=== PATIENT | female | born 1950 | race Caucasian/White ===

== ENCOUNTER → 2018-10-09 | Outpatient (CLI) | payer MEDICARE ==
[2018-10-09 13:46] LABS: HGB 10.3 gm/dL (11.4-16.0); Hypochromasia Slight; MCH 26.6 pg (25.0-35.0); MCHC 31.3 g/dL (31.0-37.0); Platelet Count 370 k/uL (150-450); RBC 3.89 m/uL (3.80-5.40); RDW 15.3 % (11.5-15.5)
[2018-10-09 19:17] LABS: Albumin 4.1 g/dL (3.80-4.90); Albumin/Globulin Ratio 2.05 (1.60-3.17); Anion Gap 9.3 mmol/L (4.00-12.00); Calcium 9.2 mg/dL (8.7-10.3); Carbon Dioxide 26.7 mmol/L (21.6-31.8); Potassium 4.9 mmol/L (3.5-5.5); Total Bilirubin 0.3 mg/dL (0.2-1.2); Total Protein 6.1 g/dL (6.2-8.2)
[2018-10-09 19:24] LABS: T4, Free (Free Thyroxine) 1.1 ng/dL (0.80-1.80)
[2018-10-09 21:31] LABS: Hemoglobin A1C 9.2 % (4.0-6.0)
== END | disposition home or self-care (01) ==
LOC: LABWHC1 12:38
PROVIDERS: ATTEND Obstetrics & Gynecology
DX: N93.8 Other specified abnormal uterine and vaginal bleeding (principal); N95.0 Postmenopausal bleeding; E03.9 Hypothyroidism, unspecified; Z13.1 Encounter for screening for diabetes mellitus
CPT/HCPCS: 36415; 80053; 83036; 84439; 84443; 84479; 85027

== ENCOUNTER → 2018-10-15 | Outpatient (CLI) | payer MEDICARE ==
[2018-10-15 09:37] LABS: Blood Urea Nitrogen 9 mg/dL (7-17)
--- NOTE | 2018-10-15 12:24 | CT ---
EXAMINATION TYPE: CT abdomen pelvis w con DATE OF EXAM: 10/15/2018 COMPARISON: NONE HISTORY: 68 year-old female cervical Mass TECHNIQUE: Contiguous axial scanning of the abdomen and pelvis following administration of 100 ml Iso liz 300 IV contrast. Delayed images through the kidneys and coronal/sagittal reconstructions perform ed. CT DLP: 1835.9 mGycm Automated exposure control for dose reduction was used. FINDINGS: Heart normal size without pericardial effusion. Lung bases clear without pleural effusion. Lower right periaortic and retrocrural lymphadenopathy measuring up to 8 mm. No focal liver lesion or biliary ductal dilatation. Portal venous system is patent. Cholecystectomy c lips are present. Right adrenal gland, left kidney, spleen, and pancreas show no gross abnormality. Small parapelvic cysts in the right kidney as well as a 1.5 cm cyst in the lower pole. Large supraumbilical ventral abdominal wall hernia. The hernia sac measures 17.4 cm wide with the abd ominal wall defect measuring 5.5 cm wide. Superiorly, the hernia contains nonobstructed distal stomac h and proximal duodenum. Inferiorly, the hernia contains nonobstructed transverse colon. Left adrenal nodule measures 2.0 cm. Numerous small retroperitoneal lymph nodes are demonstrated. Some of these are mildly enlarged in the intervertebral region measuring up to 1 cm, refer to axial image 35 and 33. Normal appendix. No pericolonic inflammatory change. Uterus is anteverted. There is a very large lobulated mass exophytic from the right uterine fundus me asuring up to 14.2 cm wide by 12.4 cm AP by 13.6 cm cranial caudal. Some internal areas of lower dens ity, likely necrosis or hemorrhage are present. Small amount of adjacent free fluid along the left po sterior aspect of the mass. Within the uterus, there appears to be diffuse thickening of the central portion, possible abnormal e ndometrial thickening measuring up to 3 cm and a large mass within the cervix measuring 6.5 x 6.2 cm. The ovaries are questionably visualized, axial image 51 and axial image 68. No pelvic lymphadenopath y seen. Bones: Degenerative changes at the hips. Some poorly defined sclerosis involving the L2 vertebral bod y may be on a degenerative basis. Early osseous metastatic disease difficult to exclude at this time. IMPRESSION: 1. LARGE MASS CENTERED IN THE CERVIX MEASURING 6.5 X 6.2 CM IS CONFIRMED. THE ENDOMETRIUM MAY ALSO BE ABNORMALLY THICKENED MEASURING UP TO 3 CM. UNDERLYING ENDOMETRIAL/CERVICAL CANCER SHOULD BE CONSIDER ED. 2. LARGE, LOBULATED, EXOPHYTIC MASS FROM THE RIGHT UTERINE FUNDUS MEASURES UP TO 14.2 CM. THERE IS SO ME ADJACENT MINIMAL FREE FLUID ALONG THE LEFT LATERAL MARGIN AND POSTERIORLY. A LARGE SUBSEROSAL PEDU NCULATED FIBROID IS POSSIBLE. FIBROID DEGENERATION OR MALIGNANT TRANSFORMATION IS NOT EXCLUDED AT THI S TIME. 3. SCATTERED NUMEROUS NONENLARGED AND SOME BORDERLINE TO MILDLY ENLARGED RETROPERITONEAL LYMPH NODES MEASURING UP TO 1 CM AND SOME LOWER RIGHT PARA-AORTIC AND RIGHT RETROCRURAL LYMPH NODES WELL MEASU RING UP TO 8 MM. EARLY METASTATIC DISEASE NOT EXCLUDED AT THIS TIME. 4. NONSPECIFIC 2 MM LEFT ADRENAL NODULE. AGAIN, METASTATIC DISEASE REMAINS TO BE EXCLUDED. 5. POORLY DEFINED SCLEROSIS INVOLVING THE L2 VERTEBRAL BODY MAY BE ON A DEGENERATIVE BASIS. EARLY OSS EOUS METASTATIC DISEASE IS THE ALTERNATIVE CONSIDERATION. 6. LARGE VENTRAL SUPRAUMBILICAL HERNIA CONTAINING NONOBSTRUCTED DISTAL STOMACH/PROXIMAL DUODENUM W ELL THE TRANSVERSE COLON. HERNIA SAC MEASURES UP TO 17.4 CM WIDE WITH THE HERNIA NECK MEASURING 5. 5 CM WIDE.
== END ==
LOC: RADCTMAIN 08:40
PROVIDERS: ATTEND Obstetrics & Gynecology
DX: N88.8 Other specified noninflammatory disorders of cervix uteri (principal); R59.0 Localized enlarged lymph nodes; E27.9 Disorder of adrenal gland, unspecified; K43.9 Ventral hernia without obstruction or gangrene
CPT/HCPCS: 82565; 84520; 74177; 36415; Q9967

== ENCOUNTER → 2019-03-20 | Outpatient (CLI) | payer MEDICARE ==
[2019-03-20 14:22] VITALS: BP 136/76; PULSE 93; RESP 18; TEMP 97.8
[2019-03-20 14:57] LABS: Anisocytosis Slight; Basophils % (A) 0 %; Eosinophils % (A) 1 %; HCT 25.5 % (34.0-46.0); HGB 8.9 gm/dL (11.4-16.0); Lymphocytes # (A) 0.6 k/uL (1.0-4.8); Lymphocytes % (A) 26 %; MCH 33.1 pg (25.0-35.0); MCHC 34.8 g/dL (31.0-37.0); MCV 95.2 fL (80.0-100.0); Macrocytosis Slight; Mean Platelet Volume 6.7; Monocytes % (A) 1 %; Neutrophils # (A) 1.6 k/uL (1.3-7.7); Neutrophils % (A) 68 %; Platelet Count 302 k/uL (150-450); Poikilocytosis Slight; RBC 2.68 m/uL (3.80-5.40); RDW 18.6 % (11.5-15.5); WBC 2.3 k/uL (3.8-10.6)
[2019-03-20 15:20] LABS: ALT 14 U/L (9-52); AST 20 U/L (14-36); African American GFR (CKD) >90 (>60 ml/min/1.73 sqM); Albumin 3.9 g/dL (3.5-5.0); Alkaline Phosphatase 71 U/L (38-126); Anion Gap 10 mmol/L; Blood Urea Nitrogen 19 mg/dL (7-17); Calcium 8.9 mg/dL (8.4-10.2); Carbon Dioxide 22 mmol/L (22-30); Chloride 106 mmol/L (98-107); Glucose 140 mg/dL (74-99); Magnesium 1.8 mg/dL (1.6-2.3); Potassium 4.3 mmol/L (3.5-5.1); Sodium 138 mmol/L (137-145); Total Bilirubin 0.3 mg/dL (0.2-1.3); Total Protein 6.8 g/dL (6.3-8.2)
== END | disposition home or self-care (01) ==
LOC: PROCWHC3 14:04
PROVIDERS: ATTEND Obstetrics & Gynecology
DX: C54.1 Malignant neoplasm of endometrium (principal)
CPT/HCPCS: 80053; 86304; 83735; 85025; 36591; J1642

== ENCOUNTER → 2019-10-03 | Outpatient (CLI) | payer MEDICARE ==
[2019-10-03 12:12] VITALS: BP 155/83; PULSE 97; RESP 16; TEMP 97.9
[2019-10-03 13:21] LABS: Anisocytosis Slight; Basophils % (A) 0 %; Eosinophils # (A) 0.2 k/uL (0-0.7); Eosinophils % (A) 3 %; HCT 33.5 % (34.0-46.0); HGB 10.8 gm/dL (11.4-16.0); Lymphocytes % (A) 13 %; MCH 31.1 pg (25.0-35.0); MCHC 32.3 g/dL (31.0-37.0); MCV 96.3 fL (80.0-100.0); Macrocytosis Slight; Mean Platelet Volume 7.2; Monocytes # (A) 0.4 k/uL (0-1.0); Monocytes % (A) 6 %; Neutrophils # (A) 5.4 k/uL (1.3-7.7); Neutrophils % (A) 76 %; Platelet Count 235 k/uL (150-450); RBC 3.48 m/uL (3.80-5.40); RDW 18.5 % (11.5-15.5); WBC 7.1 k/uL (3.8-10.6)
[2019-10-03 13:31] LABS: ALT 18 U/L (4-34); AST 24 U/L (14-36); African American GFR (CKD) >90 (>60 ml/min/1.73 sqM); Albumin 4.1 g/dL (3.5-5.0); Alkaline Phosphatase 137 U/L (38-126); Anion Gap 9 mmol/L; Blood Urea Nitrogen 17 mg/dL (7-17); Calcium 9.2 mg/dL (8.4-10.2); Carbon Dioxide 26 mmol/L (22-30); Chloride 105 mmol/L (98-107); Glucose 132 mg/dL (74-99); Non-African American GFR(CKD) >90 (>60 ml/min/1.73 sqM); Potassium 4.3 mmol/L (3.5-5.1); Sodium 140 mmol/L (137-145); Total Bilirubin 0.4 mg/dL (0.2-1.3); Total Protein 7.3 g/dL (6.3-8.2)
== END | disposition home or self-care (01) ==
LOC: PROCWHC3 11:49
PROVIDERS: ATTEND Obstetrics & Gynecology
DX: C54.3 Malignant neoplasm of fundus uteri (principal)
CPT/HCPCS: 36591; 80053; 85025; 86304

== ENCOUNTER → 2019-10-03 | Outpatient (CLI) | payer MEDICARE ==
--- NOTE | 2019-10-06 10:36 | PE ---
EXAMINATION TYPE: PET CT fusion skull to thigh DATE OF EXAM: 10/03/2019 COMPARISON: CT abdomen pelvis 10/15/2018 Prior PET/CT: 04/16/2019, 01/27/2019 HISTORY: Endometrial cancer TECHNIQUE: Following the intravenous administration of 12.498 mCi of F-18 FDG, whole body images are performed from the skull base to the midthigh. Images are reviewed on the computer in the coronal, axial, and sagittal planes. Reconstructed rotating images are created on independent workstation and reviewed on the computer. A localization and attenuation correction CT is performed in conjunction with the PET scan. DLP: 333.77 mGycm SCAN: Subsequent Blood glucose: 121 mg/dL Average Mediastinum SUV: 1.14 Average Liver SUV: 2.14 FINDINGS: NECK: No abnormal uptake THORAX: No abnormal uptake ABDOMEN: No abnormal uptake. There is increased uptake throughout: Extending towards the gallbladder bed fossa. No definite hepatic involvement is evident. Findings are likely normal bowel activity. PELVIS: No abnormal uptake OSSEOUS STRUCTURES: No abnormal uptake LOCALIZATION CT: Postsurgical changes are evident within the anterior abdominal wall. Cholecystectomy has been performed. The ascending thoracic aorta at the level of main pulmonary artery is 3.5 cm. Th e main pulmonary bifurcation is 2.5 cm. COMPARISON: Previous pelvic mass is been resected. Previous anterior abdominal wall hernia has been r educed. IMPRESSION: 1. No suspicious uptake to suggest residual or metastatic disease.
== END | disposition home or self-care (01) ==
LOC: RADPETMAIN 12:20
PROVIDERS: ATTEND Obstetrics & Gynecology
DX: C54.1 Malignant neoplasm of endometrium (principal)
CPT/HCPCS: 78815; A9552; J1642; 36591; 80053; 85025; 86304

== ENCOUNTER → 2020-01-14 | Outpatient (CLI) | payer MEDICARE ==
[~2020-01-14] MED LIST: SODIUM CHLORIDE 0.9% 500 ML 500 ML in EMPTY BAG 1 BAG IV PRN
[2020-01-14 12:46] VITALS: BP 164/66; PULSE 86; RESP 16; TEMP 98.2
== END | disposition home or self-care (01) ==
LOC: PROCWHC3 12:15
PROVIDERS: ATTEND Nurse Practitioner
DX: C54.1 Malignant neoplasm of endometrium (principal)
CPT/HCPCS: 36591

== ENCOUNTER → 2020-04-28 | Outpatient (CLI) | payer MEDICARE ==
[2020-04-28 10:57] VITALS: BP 155/71; PULSE 83; RESP 16; TEMP 98.1
== END | disposition home or self-care (01) ==
LOC: PROCWHC3 10:50
PROVIDERS: ATTEND Obstetrics & Gynecology
DX: C54.3 Malignant neoplasm of fundus uteri (principal)
CPT/HCPCS: 96523; J1642